=== PATIENT | female | born 1980 | race Caucasian/White ===

== ENCOUNTER 2020-09-16 17:18 | Outpatient (CLI) | payer BC, SELFPAY ==
--- NOTE | ~2020-09-16 | MM_ITS ---
EXAMINATION: MM scrn ciara implant BI w bianca HISTORY: Screening mammogram TECHNIQUE: Craniocaudal and mediolateral oblique 3-D tomosynthesis images with implant displacement a nd synthetic 2-D images were generated. Craniocaudal and mediolateral oblique views of the breasts wi thout implant displacement were obtained using full field digital mammography. CAD analysis was submi tted and interpreted. COMPARISON: 05/14/2015 BREAST PARENCHYMAL COMPOSITION: The breasts are heterogeneously dense, which may obscure small masses . FINDINGS: There is no evidence of suspicious mass, calcification, or architectural distortion to sugg est malignancy in either breast. There has been no suspicious interval change. IMPRESSION: 1. No mammographic evidence of malignancy. 2. Recommend routine screening mammography beginning at age 40. BI-RADS Category 1: Negative Reviewed, dictated and finalized at location A.
== END 2020-09-16 17:19 | disposition home or self-care (01) ==
LOC: ANHIMG 17:22
PROVIDERS: Visit Provider Surgery Plastic and Reconstructive Surgery
DX: Z12.31 Encounter for screening mammogram for malignant neoplasm of breast (principal)
CPT/HCPCS: 77063; 77067

== ENCOUNTER 2020-09-30 00:06 | Outpatient (CLI) | payer SELFPAY ==
[2020-09-30 19:48] LABS: SARS-CoV-2 RNA PCR Negative
== END 2020-09-30 00:07 | disposition home or self-care (01) ==
LOC: ANHCOVIDDT 00:06
PROVIDERS: Visit Provider Surgery Plastic and Reconstructive Surgery
DX: Z01.812 Encounter for preprocedural laboratory examination (principal); Z20.828 Contact with and (suspected) exposure to other viral communicable diseases
CPT/HCPCS: 87635; C9803; U0003

== ENCOUNTER 2020-10-03 00:03 | Day surgery (SDC) | payer OTHER, SELFPAY ==
[2020-09-18 14:54] VITALS: BMI 25.1
[2020-10-03] VITALS (8 sets, daily range): BP systolic 114–134; BP diastolic 55–87; PULSE 82–124; RESP 14–22; TEMP 36.2–36.9; O2SAT 100
[2020-10-03] MEDS: LACTATED RINGERS 1,000 ML 30 ML IV CONT ×2 (08:43→10:35)
--- NOTE | 2020-10-03 08:45 | WPDANESEPPF ---
Anes - Initial Pre Proc Eval Procedure: Operation Date: 10/03/20 10:00 Proposed Procedures p Bilateral Breast Implant Exchange - Jb Summers MD Date/Time: 10/03/20 08:45 Surgeon: Jb Summers MD Pre Op Diagnosis: Hx Breast Augmentation Patient Data Age: 39 Gender: F Height: 5 ft 9 in Weight: 77.11 kg Allergies Allergy/AdvReac Type Severity Reaction Status Date / Time tetracycline Allergy Unknown FELT LIKE Verified 09/17/20 16:27 COULDNT SWALLOW HYDROCODONE BIT Allergy Unknown BLACKED Uncoded 09/17/20 16:27 OUT Home Medications Medication Instructions Recorded Confirmed Type citalopram 40 mg tablet 40 mg PO DAILY 08/11/20 09/18/20 History linaclotide 290 mcg capsule 290 mcg PO DAILY 08/11/20 09/18/20 History phentermine 37.5 mg capsule 37.5 mg PO DAILY 08/11/20 09/18/20 History carisoprodol 350 mg tablet 350 mg PO TID PRN #21 tablet 09/19/20 09/19/20 Rx tramadol 50 mg tablet 50 mg PO Q6H PRN #15 tablet 09/28/20 Rx alprazolam PO PRN 09/29/20 History Patient hx anesthesia problems: post op nausea/vomiting Family hx anesthesia problems: none PMFSH Past Medical History Medical History Anxiety Surgical History Surgical History History of breast augmentation 2007 Family History Family History Other Cancer Social History Social History Smoking status: Never smoker Alcohol intake: current Substance use: never Living arrangements: with family Gender identity (if verbalized by the patient): Female Spiritual care concerns: No Anes - Eval Final PreProcedure Day of Procedure 10/03/20 08:45 Patient weight: normal Heart: regular rate and rhythm Lungs: clear to auscultation Airway: Mallampati scale class II Neurological: alert and oriented Last oral intake: >/= 8 hours ASA classification: II Emergent: no Anesthetic plan: proceed Anesthesia type and monitoring: general LMA and standard monitoring Other findings: TIVA Informed Consent: The patient's anesthetic plan and its attendant risks and benefits were discussed with the patient/family/POA. Questions were solicited and answers provided to the satisfaction of the patient/family/POA.
--- NOTE | 2020-10-03 09:03 | WPDHPUPDATE1 ---
History and Physical Update Update Date/Time: 10/03/20 09:03 History and Physical has been reviewed, including an updated exam of the patient. There are NO changes in the patient's condition. Risks, benefits, and alternatives have been discussed and questions answered. Patient agrees to proceed with procedure.
--- NOTE | 2020-10-03 09:23 | PM.PROC ---
Procedure Note - Detailed Date of procedure: 10/03/20 Pre-op diagnosis: Hx Breast Augmentation Post-op diagnosis: same Procedure performed: Bilateral breast implant exchange Description of procedure: Preoperative leave the risks, benefits, alternatives were discussed in extensive detail. I want her to be very realistic about the risks involved as well as expectations. Made sure answered all of her questions are satisfaction. Consent obtained. She was taken to the operating room placed supine on the operating room table. Anesthesia was provided by anesthesiology and prepped and draped in a standard sterile fashion. Surgical time-out was taken. 1% lidocaine and 0.25% Marcaine with epinephrine was used anesthetize as a field block. We discussed the options of incision and she has elected to with the IMF incision even though she had had a previous periareolar. Fifteen blade used to make an incision along IMF. Dissection was continued down until the implant was identified this was removed. I irrigated with more than 3 L of saline solution on TUR tubing and verified strict hemostasis. Adjusted the capsule as necessary with capsulotomy. Minimal is necessary. Verified strict hemostasis. Irrigated with triple antibiotic Betadine containing solution. Wash my gloves. On the back table removed all air from the implant was introduced into the pocket. I filled to the fill volume as below. Removed the fill valve and verified the valve seated. Closed using 2-0 Vicryl followed by 3-0 Monocryl in a running subcuticular 4-0 Monocryl and tissue glue. She tolerated well. Anesthesia: GLMA Surgeon: Jb Summers MD Estimated blood loss (mL): 10 Drains: No Packing: No Pathology: none sent Complications: No immediate complications Condition: stable Disposition: PACU Findings: Bilateral Natrelle Saline implants 510cc filled to 530cc. Right: REF# [id number] [id number] Left: REF# [id number]
[2020-10-03] MEDS: ceFAZolin 2 GM/D5W 50 ML 2 GM/50 ML BAG IVPB (09:27)
[2020-10-03] MEDS: LIDO 1%/EPINEPHRINE 1:100,000 20 ML VIAL 30 ML INFILTRATE (10:16)
[2020-10-03] MEDS: HYDROmorphone HCL INJ (*CRX) 1 MG/ML SYR 0.5 MG IV PUSH (10:59)
[2020-10-03] MEDS: oxyCODONE HCL (*CRX) 5 MG TAB IR PO (11:55)
--- NOTE | 2020-10-03 12:26 | SUR.PHASEII ---
PT AWAKE AND ALERT. STATES PAIN MILD AND TOLERABLE. STATES SHE IS RELAXED AND READY TO GO HOME. MEETS DISCHARGE CRITERIA
== END 2020-10-03 12:28 | disposition home or self-care (01) ==
PROVIDERS: PCP Family Medicine; Visit Provider Surgery Plastic and Reconstructive Surgery
PROC: (CPT 19342; principal; 2020-10-03 10:00)
DX: Z45.812 Encounter for adjustment or removal of left breast implant (principal); Z45.811 Encounter for adjustment or removal of right breast implant; F41.9 Anxiety disorder, unspecified
CPT/HCPCS: 19340; 19328; A9270; J0690; J1100; J1170; J1580; J2250; J2405; J2704; J3010; J7030; J7120

== ENCOUNTER 2021-02-14 02:53 | Emergency (ER) | payer BC, SELFPAY ==
[2021-02-14 02:57] VITALS: BP 136/96; PULSE 122; RESP 16; TEMP 36.3; O2SAT 100
[2021-02-14] MEDS: SODIUM CHLORIDE 0.9% IV 1,000 ML 999 ML IV CONT (03:15)
[2021-02-14] MEDS: LORazepam INJ (*CRX) 2 MG/ML VIAL 1 MG IV PUSH (03:20)
[2021-02-14 04:14] VITALS: BP 128/95; PULSE 88; RESP 16; O2SAT 100
--- NOTE | 2021-02-14 04:18 | ED.GENADULT ---
HPI - General Adult General Chief complaint: Altered Mental Status Stated complaint: took THC gummy/ AMS Time Seen by Provider: 02/14/21 03:04 History of Present Illness HPI narrative: Patient is a 40-year-old female who presents to the emergency department with chief complaint of feeling weird and anxious. Patient reports she has history of anxiety and tonight tried to take a new CBD gummy that she is never taken before patient was previously exposed to CBD but today took a delta 8 THC that the CBD store sold to her. Patient states that she feels very strange and very anxious. Patient denies chest pain denies shortness of breath Related Data Home Medications Medication Instructions Recorded Confirmed citalopram 40 mg tablet 40 mg PO DAILY 08/11/20 09/18/20 linaclotide 290 mcg capsule 290 mcg PO DAILY 08/11/20 09/18/20 alprazolam PO PRN 09/29/20 Allergies Allergy/AdvReac Type Severity Reaction Status Date / Time tetracycline Allergy Unknown FELT LIKE Verified 12/10/20 08:52 COULDNT SWALLOW HYDROCODONE BIT Allergy Unknown BLACKED Uncoded 11/28/20 09:13 OUT Review of Systems Review of Systems: Narrative: A 10 system review of systems was completed on the patient and is negative except for what is stated in the HPI. Nursing and ancillary documentation was reviewed. PMFSH Past Medical History Medical History Anxiety Surgical History Surgical History History of breast augmentation 2007 Family History Family History Other Cancer Social History Social History Smoking status: Never smoker Alcohol intake: current Substance use: never Gender identity (if verbalized by the patient): Female Spiritual care concerns: No Exam Narrative: Exam Narrative: GENERAL: Well-appearing, well-nourished, and in no acute distress. HEAD: Normocephalic, atraumatic. EYES: PERRLA and EOMI. ENT: Nares clear, no rhinorrhea or epistaxis. Mucous membranes moist. NECK: Supple. CHEST: Clear to auscultation. No respiratory distress. HEART: Regular rate and rhythm. No murmur heard. Normal peripheral pulses. ABDOMEN: Soft, nontender, nondistended, normal active bowel sounds. EXTREMITIES: Normal range of motion. No edema. SKIN: Warm, dry, no rash. NEURO: No focal deficits. Alert and oriented x3. PSYCH: Normal mood and affect. Course Vital Signs Vital signs: Vital Signs Temperature 36.3 C L 02/14/21 02:57 Pulse Rate 122 H 02/14/21 02:57 Respiratory Rate 16 02/14/21 02:57 Blood Pressure 136/96 H 02/14/21 02:57 Pulse Oximetry 100 02/14/21 02:57 Temperature 36.3 C L 02/14/21 02:57 Pulse Rate 88 02/14/21 04:14 Respiratory Rate 16 02/14/21 04:14 Blood Pressure 128/95 H 02/14/21 04:14 Pulse Oximetry 100 02/14/21 04:14 Medical Decision Making Vital Signs Vital Signs: Vital Signs Temperature 36.3 C L 02/14/21 02:57 Pulse Rate 122 H 02/14/21 02:57 Respiratory Rate 16 02/14/21 02:57 Blood Pressure 136/96 H 02/14/21 02:57 Pulse Oximetry 100 02/14/21 02:57 Temperature 36.3 C L 02/14/21 02:57 Pulse Rate 88 02/14/21 04:14 Respiratory Rate 16 02/14/21 04:14 Blood Pressure 128/95 H 02/14/21 04:14 Pulse Oximetry 100 02/14/21 04:14 Discharge Plan Discharge Clinical Impression: Medication side effect Patient Disposition: Home, Self-Care Condition: Stable Instructions: Antibiotic Form Prescriptions: No Action Linzess 290 mcg capsule 290 mcg PO DAILY RF: 0 citalopram 40 mg tablet 40 mg PO DAILY RF: 0 alprazolam PO PRN (Reason: Anxiety) RF: 0 Follow-up/Referrals: Lucero,Leighann Zapata MD [Primary Care Provider] - Time of Disposition: 04:46
[2021-02-14 05:00] VITALS: BP 121/77; PULSE 87; RESP 20; O2SAT 98
== END 2021-02-14 05:04 | disposition home or self-care (01) ==
LOC: ANHED 04:20
PROVIDERS: Emergency Provider Emergency Medicine; PCP Family Medicine
DX: F41.9 Anxiety disorder, unspecified (principal); F12.90 Cannabis use, unspecified, uncomplicated
CPT/HCPCS: 96361; 96374; 99284; J2060; J7030

== ENCOUNTER → 2023-08-24 07:49 | Outpatient (CLI) | payer BC, SELFPAY ==
--- NOTE | ~2023-08-24 | MMUS_ITS ---
EXAMINATION: MM diag ciara implant BI w bianca, US breast LT limited HISTORY: Abnormal swelling near the left breast implant TECHNIQUE: Craniocaudal, mediolateral, and mediolateral oblique 3-D tomosynthesis images with implant displacement of the breasts were performed and synthetic 2-D images were generated. Craniocaudal, m ediolateral oblique, and mediolateral views of the breasts without implant displacement were obtained using full field digital mammography. CAD analysis was submitted and interpreted. High resolution li [employer]d left breast ultrasound was performed. COMPARISON: 09/16/2020 BREAST PARENCHYMAL COMPOSITION: The breasts are heterogeneously dense, which may obscure small masses . FINDINGS: MAMMOGRAPHIC FINDINGS: No suspicious mass, calcification, or architectural distortion are identified in either breast to sug gest malignancy. There has been no suspicious interval change. No suspicious mammographic correlate i s identified for the reported abnormality questioned on the left breast implant. There appears to be a fold in the implant in the area of concern. ULTRASOUND: There is no evidence of focal abnormal solid or cystic lesion in the vicinity of the reported abnorma lity of concern in the left breast implant. IMPRESSION: 1. No specific mammographic or sonographic correlate is identified for the reported abnormality of co ncern in the left breast implant Further evaluation at this time should be based on clinical assessme nt. Continued follow-up physical examination is recommended. Consider breast MRI for implant evaluati on. 2. Recommend routine screening mammography in one year. BI-RADS Category 1: Negative Reviewed, dictated and finalized at location A. IMPRESSION: 1. No specific mammographic or sonographic correlate is identified for the repo rted abnormality of concern in the left breast implant Further evaluation at is time should be based on clinical assessment. Continued follow-up physical ex amination is recommended. Consider breast MRI for implant evaluation. 2. Recommend routine screening mammography in one year. BI-RADS Category 1: Negative
== END ==
PROVIDERS: PCP Surgery Plastic and Reconstructive Surgery; Visit Provider Nurse Practitioner
DX: N64.59 Other signs and symptoms in breast (principal); N63.21 Unspecified lump in the left breast, upper outer quadrant
CPT/HCPCS: 76642; 77062; 77066; G0279

== ENCOUNTER 2024-04-26 15:22 | Outpatient (CLI) | payer BC, SELFPAY | END 2024-04-26 15:23 | disposition home or self-care (01) | PROVIDERS: PCP Nurse Practitioner Family; Visit Provider Nurse Practitioner Family | DX: M25.562 Pain in left knee (principal) | CPT/HCPCS: 73564 ==

== ENCOUNTER 2024-12-14 08:58 | Outpatient (CLI) | payer OTHER, SELFPAY ==
--- OUTSIDE RECORDS SUMMARY | 2024-12-14 09:14 | XMS_ITS | Data Portability ---
Author Organization [facility] [employer], Main Office Address [address] [place] [address] Assessment No assessment recorded. Plan of Treatment Reminders Order Date Submit Date Provider Last Modified By Organization Details Last Modified Time Details Appointments None recorded. Lab None recorded. Referral gastroenter ologist referral 2022 023 [email or web address] 3 [facility], [address], [address], [address], 3 07:44:02 physical therapist referral - *Please call pt to schedule* 2023 [email or web address] [place] [address] [facility], [address], [place], [address], 4 08:54:14 gastroenter ologist referral - Please call patient to schedule an appointment . Thank you 2023 024 [email or web address] [facility], [address], [address], [place], [address], 4 15:54:04 Procedures cerumen removal using irrigation (PROC) 2022 023 Not available 3 12:50:49 Surgeries None recorded. Imaging MAMMO, diagnostic, bilateral - *Please call pt to schedule* 2022 023 [email or web address] 256 [facility] (Imaging), [address], [place], [address], 3 08:41:34 XR, knee [email or web address] [place] [address] ([facility]), [facility]0 [facility] [address], [place], [address], 4 09:58:18 Medication Orders Wegovy 1.7 mg/0.75 mL subcutaneou s pen injector [address]/Pharmacy [address]2510, [address] [place], [address], 5 15:26:36 Debrox 6.5 % ear drops [address]/Pharmacy [address]2510, [address] [place], [address], 5 15:26:57 triamcinolo ne acetonide 0.1 % topical cream 2022 [address] [employer] [place] [address]/Pharmacy #2510, [address] [place], [address], 5 15:26:32 Wegovy 1.7 mg/0.75 mL subcutaneou s pen injector 2024 025 [facility]/Pharmacy #2510, [address] [place], [address], 5 16:07:36 Patient TargetsNo targets recorded. Patient InstructionsNo instructions recorded. Reason for Referral Technical Illustrator Referral for Irritable bowel syndrome Referring Physician: Family Giuseppe López, Encounter Date: 07/15/2023 Physical Therapist Referral for Pain of left knee joint L knee pain *Please call pt to schedule* Referring Physician: Family Giuseppe López, Encounter Date: 03/29/2024 Technical Illustrator Referral for Irritable bowel syndrome Please call patient to schedule an appointment. Thank you Referring Physician: Beau Phoenix, Family Medicine, Encounter Date: 06/27/2024 Results Created Date Observation Date Name Description Value Unit Range Abnormal Flag Note LastModifiedBy Organization Detail LastModifiedTime 04/27/20 24 04/26/2024 XR, knee No observ ation record ed. [facility] [address], [place], [address], 08/27/2024 09:50:48 Result Notes None recorded. Problems Name Problem SNOMED Code Status Onset Date Resolution Date Notes Provider Name and Address Organization Details Recorded Time Irritable bowel syndrome characteri zed by constipati on 435247916 Active 2019 Not Available [facility] 3 21:54:52 Anxiety 14819600 Active 2019 Not Available [facility] 3 21:54:52 Irritable bowel syndrome 97064164 Active 2022 ROBBY López [address], [place], [address] , [employer] 3 16:16:03 Pain of left breast 8452141076 Active 2022 ROBBY López [address] [facility], [place], [address] , [employer] 3 09:46:03 Otitis externa of bilateral ears 6926342468207 109 Active 2022 Leighann Barker MD [address], [place], [address] , [employer] 3 13:43:11 Eczema 92565020 Active 2022 ROBBY López [address], [place], [address] , [employer] 3 15:59:46 Impacted cerumen in right ear 3278079518749 103 Active 2022 ORBBY López [address], [place], [address] , [employer] 3 16:06:21 Impacted cerumen in left ear 1565257483782 101 Active 2022 ABDIFATAH López-C [address], [address], [place], [address] , [employer] [facility] [employer] 3 16:06:30 Pain of left knee joint 4198482713694 07 Active 2023 ABDIFATAH López-C [address], [address], [place], [address] , [employer] 4 16:01:38 Aphthous ulcer of mouth 484332480 Active 2023 ABDIFATAH Snatacruz-C [address], [address], [place], [address] , [employer] 4 12:22:46 Problem Notes None recorded. Procedures Surgical History Date Name Laterality Status Provider Name and Address Organization Details Recorded Time 3 Ear Irrigation completed ABDIFATAH López-Osiel [address], [address], [place], [address], [employer] 09/22/2023 16:31:53 Imaging Results Imaging Date Name Status LastModified by Organiz ation Details LastModified Time 04/26/2024 XR, knee completed llalor [facility] [address] [facility] [address], [address], 08/27/2024 09:50:48 Procedure Notes None recorded. Medical Equipment None Reported. Allergies Allergen ID Allergen Name Allergen Category Reaction Reaction Severity Criticality Documentation Date Start Date Code Code System Note Provider Name and Address Organization Details Recorded Time 60434 acetamino phen / hydrocodo ne medicatio n dizziness Not available Not available 01/19/2023 54023 2 RxNorm Not Available [facility] 3 21:56:46 16403 tetracycl ine medicatio n Not available Not available Not available 01/19/2023 93618 RxNorm diffi culty swall owing Not Available [employer] 3 21:56:46 Medications Name Sig Start Date Stop Date Status Note LastModified by Organization Details LastModified Time Prescriptio n - Prior Authorizati on Request active Not Available Not Available N ot Available carisoprodo l 350 mg tablet TAKE 1 TABLET 3 TIMES DAILY NEEDED FOR MUSCLE PAIN active Not Available Not Available No t Available promethazin e-DM 6.25 mg-15 mg/5 mL oral syrup TAKE 5 MILLILITE R (ORAL) EVERY 4-6 HOURS NEEDED- CONGESTIO N FOR 5 DAYS 12/21 completed Not Available Not Available Not Available citalopram 40 mg tablet TAKE 1 TABLET BY MOUTH EVERY DAY active Not Available Not Available No t Available azithromyci n 250 mg tablet TAKE 2 TABLETS BY MOUTH TODAY, THEN TAKE 1 TABLET DAILY FOR 4 DAYS 12/21 completed Not Available Not Available Not Available ibuprofen 800 mg tablet 1 po tid 12/21 completed Not Available Not Available Not Available citalopram 10 mg tablet 05/19 completed Not Available Not Available Not Available valacyclovi r 1 gram tablet TAKE 1 TABLET BY MOUTH EVERY 12 hours 11/28 completed Not Available Not Available Not Available prednisone 20 mg tablet TAKE 2 TABLETS BY MOUTH EVERY DAY FOR 5 DAYS 11/28 completed Not Available Not Available Not Available phentermine 37.5 mg tablet TAKE 1 TABLET BY MOUTH EVERY DAY 11/28 completed Not Available Not Available Not Available valacyclovi r 500 mg tablet 10/19 completed Not Available Not Available Not Available tramadol 50 mg tablet TAKE 1 TABLET BY MOUTH EVERY 6 HOURS NEEDED FOR PAIN active Not Available Not Available No t Available triamcinolo ne acetonide 0.1 % topical cream APPLY A THIN LAYER TO THE AFFECTED AREA(S) BY TOPICAL ROUTE 2 TIMES PER DAY 11/28 completed Not Available Not Available Not Available oxycodone-a cetaminophe n 5 mg-325 mg tablet TAKE 1 TABLET BY MOUTH EVERY 6 HOURS NEEDED FOR PAIN active Not Available Not Available No t Available alprazolam 0.5 mg tablet TAKE 1 TABLET EVERY DAY BY ORAL ROUTE NEEDED. active Not Available Not Available No t Available amoxicillin 875 mg tablet TAKE 1 TABLET BY MOUTH TWICE A DAY FOR 10 DAYS 12/21 completed Not Available Not Available Not Available alprazolam 0.25 mg tablet 05/19 completed Not Available Not Available Not Available citalopram 20 mg tablet 05/19 completed Not Available Not Available Not Available Ear Wax Removal Kit 6.5 % drops INSTILL 5 DROPS INTO AFFECTED EAR TWICE A DAY 11/28 completed Not Available Not Available Not Available trazodone 100 mg tablet TAKE 1 TABLET BY MOUTH EVERYDAY AT BEDTIME active Not Available Not Available No t Available benzonatate 100 mg capsule 05/19 completed Not Available Not Available Not Available cephalexin 500 mg capsule TAKE 1 CAPSULE BY MOUTH THREE TIMES A DAY FOR 10 DAYS 11/28 completed Not Available Not Available Not Available oseltamivir 75 mg capsule 05/19 completed Not Available Not Available Not Available docusate sodium 100 mg capsule TAKE 1 CAPSULE BY MOUTH TWICE A DAY active Not Available Not Available No t Available gabapentin 300 mg capsule Take 300mg PO qd x 1, then 300mg PO bid x 1, then 300mg PO tid for 5 days active Not Available Not Available No t Available lidocaine HCl 2 % mucosal solution active Not Available Not Available Not Available gabapentin 100 mg capsule 05/19 completed Not Available Not Available Not Available methylpredn isolone 4 mg tablets in a dose pack TAKE 6 TABLETS ON DAY 1 DIRECTED ON PACKAGE AND DECREASE BY 1 TAB EACH DAY FOR A TOTAL OF 6 DAYS 12/21 completed Not Available Not Available Not Available clobetasol 0.05 % scalp solution APPLY TO THE AFFECTED SCALP AREA BY TOPICAL ROUTE 2 TIMES PER DAY IN THE MORNING AND EVENING 11/28 completed Not Available Not Available Not Available amoxicillin 875 mg-potassiu m clavulanate 125 mg tablet TAKE 1 TABLET BY MOUTH TWICE A DAY FOR 10 DAYS 12/21 completed Not Available Not Available Not Available ciprofloxac in 0.3 %-dexametha sone 0.1 % ear drops,suspe nsion INSTILL 4 DROPS INTO AFFECTED EAR(S) TWICE A DAY FOR 7 DAYS 11/28 completed Not Available Not Available Not Available diclofenac 1 % topical gel 05/19 completed Not Available Not Available Not Available Rebeca 30 mg tablet 12/21 completed Not Available Not Available Not Available Linzess 145 mcg capsule TAKE 1 CAPSULE BY MOUTH EVERY DAY active Not Available Not Available No t Available Linzess 290 mcg capsule TAKE 1 CAPSULE BY MOUTH EVERY DAY active Not Available Not Available No t Available Flucelvax Quad (PF) 60 mcg (15 mcg x 4)/0.5 mL IM syringe 11/28 completed Not Available Not Available Not Available Wegovy 2.4 mg/0.75 mL subcutaneou s pen injector 0.75 ml sc qweek 11/28 completed Not Available Not Available Not Available Wegovy 1.7 mg/0.75 mL subcutaneou s pen injector INJECT 1.7 MG SUBCUTANE OUSLY ONE TIME PER WEEK active Not Available Not Available No t Available Wegovy 1 mg/0.5 mL subcutaneou s pen injector INJECT 1 MG SUBCUTANE OUSLY EVERY WEEK 10/12 completed Not Available Not Available Not Available Wegovy 0.25 mg/0.5 mL subcutaneou s pen injector INJECT 0.5ML SUBCUTANE OUSLY ONCE WEEKLY 11/28 completed Not Available Not Available Not Available Wegovy 0.5 mg/0.5 mL subcutaneou s pen injector INJECT 0.5 MG SUBCUTANE OUSLY EVERY WEEK 10/19 completed Not Available Not Available Not Available Vitals Date Recorded Body height Body mass index (BMI) Body weight Body temperature Heart rate Oxygen saturation Oxygen saturation in Arterial blood by Pulse oximetry Systolic blood pressure Diastolic blood pressure Provider Name and Address Organization Details Last Updated DateTime 3 175.26 cm 26.4 kg/m2 83524.0 3 g 98.3 [degF] 86 /min 98 % 98 % 122 mm[Hg] 70 mm[Hg] Fabiana Carrillo LPN [place] [facility] [employer] [facility] 3 09:31:33 Date Recorded Body height Body mass index (BMI) Body weight Body temperature Heart rate Oxygen saturation Oxygen saturation in Arterial blood by Pulse oximetry Systolic blood pressure Diastolic blood pressure Provider Name and Address Organization Details Last Updated DateTime 3 175.26 cm 24.5 kg/m2 87726.3 3 g 98.2 [degF] 83 /min 97 % 97 % 108 mm[Hg] 74 mm[Hg] Lizbeth Jang RN [facility] [employer] [facility] 3 15:57:01 Date Recorded Body height Body mass index (BMI) Body weight Body temperature Heart rate Oxygen saturation Oxygen saturation in Arterial blood by Pulse oximetry Systolic blood pressure Diastolic blood pressure Provider Name and Address Organization Details Last Updated DateTime 4 175.26 cm 23 kg/m2 60604.4 1 g 98.3 [degF] 85 /min 100 % 100 % 130 mm[Hg] 82 mm[Hg] Usha Milan RN [facility] [employer] [facility] 4 15:58:32 Date Recorded Body height Body mass index (BMI) Body weight Body temperature Heart rate Oxygen saturation Oxygen saturation in Arterial blood by Pulse oximetry Systolic blood pressure Diastolic blood pressure Provider Name and Address Organization Details Last Updated DateTime 4 175.26 cm 23.5 kg/m2 11735.1 9 g 98.3 [degF] 82 /min 99 % 99 % 124 mm[Hg] 82 mm[Hg] Usha Milan RN [facility] [employer] [facility] 4 15:53:44 Date Recorded Body height Body mass index (BMI) Body weight Body temperature Heart rate Oxygen saturation Oxygen saturation in Arterial blood by Pulse oximetry Systolic blood pressure Diastolic blood pressure Provider Name and Address Organization Details Last Updated DateTime 5 175.26 cm 23.5 kg/m2 33346.1 9 g 97.2 [degF] 112 /min 93 % 93 % 110 mm[Hg] 64 mm[Hg] Barrington Nino RN [facility] [employer] [facility] 5 15:26:00 Social History Question Answer Notes LastModified by Organizat ion Details LastModified Time Tobacco Smoking Status Never Smoker Not Available [employer] 01/19/2023 21:53:37 What Is Your Level Of Alcohol Consumption? Occasional [id number] Information not available 01/19/2023 What Is Your Level Of Caffeine Consumption? Moderate [id number] Information not available 01/19/2023 In The 14 Days Before Symptom Onset, Have You Had Close Contact With A Laboratory-confir med COVID-19 While That Case Was Ill? No [id number] Information not available 01/19/2023 In The 14 Days Before Symptom Onset, Have You Had Close Contact With A Person Who Is Under Investigation For COVID-19 While That Person Was Ill? No [id number] Information not available 01/19/2023 What Type Of Diet Are You Following? REGULAR [id number] Information not available 01/19/2023 Do You Or Have You Ever Used E-cigarettes Or Vape? Never Used Electronic Cigarettes [id number].[id number] Information not available 01/19/2023 Do You Or Have You Ever Used Smokeless Tobacco? Never Used Smokeless Tobacco [id number].[id number] Information not available 01/19/2023 Do You Use Any Illicit Or Recreational Drugs? No MIGRATION.[id number] 1367 Information not available 01/19/2023 Has Tobacco Cessation Counseling Been Provided? No MIGRATION.[id number] Information not available 01/19/2023 Do You Have Any Dietary Restrictions? No MIGRATION.[id number] 8914 Information not available 01/19/2023 Do You Or Have You Ever Used Any Other Forms Of Tobacco Or Nicotine? No MIGRATION.[id number] Information not available 01/19/2023 Sex: Unknown Functional Status Question Answer Note LastModified by [employer] ion Details LastModified Time What is your exercise level? Occasional [id number] Information not available 01/19/2023 Mental Status None recorded. Family History Nothing Reported. Medical History Condition Response BLINDNESS N RHEUMATIC FEVER N BLADDER PROBLEMS N KIDNEY STONES N MRSA N OTHER # 1 N POLIO N LUNG DISEASE/DISORDER N RADIATION / CHEMOTHERAPY N COPD N Other # 2 N BLOOD DISEASES N SURGERY N EAR OR HEARING PROBLEMS N MUMPS N DEPRESSION (INCLUDING POST ) N FEMALE PROBLEMS / INFECTIONS N BOWEL PROBLEMS N STROKE/TIA N THYROID DISEASE N ULCERS N BENIGN PROSTATIC HYPERPLASIA N MEASLES N CERVICALGIA N TB SKIN TEST N MYOCARDIAL INFARCTION N PARAPELGIA N OBESITY N GERD/NAUSEA N ANEURYSM N URINARY/BLADDER/KIDNEY PROBLEMS N CORONARY ARTERY DISEASE (CAD) N MENIERE'S DISEASE N ADDICTION CONCERNS N ENDOMETRIOSIS N USE OF BLOOD THINNERS N SKIN PROBLEMS N EMPHYSEMA N GASTROINTESTINAL DISORDER N MUSCLE,JOINT OR BONE PROBLEMS N GASTROINTESTINAL BLEEDING N BLOOD CLOTS N ASTHMA N CATARACTS N ERECTILE DYSFUNCTION N GI PROBLEMS N CHF N Low Testosterone N NEUROPATHY N INFERTILITY N AIDS/HIV N FRACTURES N CHEMOTHERAPY / RADIATION N VISION/EYE PROBLEMS N LIVER DISEASE N MALE HYPOGONADISM N HYPERTENSION N TOURETTE'S N ANXIETY DISORDER N BLOOD TRANSFUSION N ANEMIA/BLOOD DISORDER N CHRONIC EAR INFECTIONS N BRONCHITIS N TUBERCULOSIS N GLAUCOMA N FOOT PROBLEM N DIVERTICULITIS N CHICKENPOX N SLEEP APNEA N ALLERGIES/HAYFEVER N INFECTIOUS DISEASE N HEART ARRHYTHMIA N PROSTATE N INSOMNIA N HIGH CHOLESTEROL / HYPERLIPIDEMIA N HYPERTHYROIDISM N EYE PROBLEMS N EATING DISORDER N EDEMA N CHRONIC PAIN SYNDROME N CAROTID BLOCKAGE N CONSTIPATION N BACK / NECK PROBLEMS N HAVE YOU BEEN HOSPITALIZED OR SEEN IN [facility] IN THE PAST YEAR ? N ATHEROSCLEROSIS N BREAST PROBLEMS N DIALYSIS N ECZEMA N FIBROMYALGIA N OSTEOPOROSIS N ARTHRITIS N NO SIGNIFICANT PAST MEDICAL HISTORY N APPENDICITIS N DIABETES, TYPE N BAD TEETH N HEARTBURN / REFLUX N ADD/ADHD N AUTISM SPECTRUM DISORDER (ASD) N HEPATITIS / LIVER DISEASE N PULMONARY DISEASE N GOUT N SLEEP DISORDER N ALZHEIMER'S DISEASE N PAIN N HERPES N DEMENTIA N HEADACHES/MIGRAINES N SEIZURES/EPILEPSY N VASCULAR DISEASE N PACEMAKER N DIZZINESS N HEART DISEASE/HEART PROBLEMS N KIDNEY DISEASE N DEVELOPMENTAL OR BEHAVIORAL DISORDERS N MULTIPLE SCLEROSIS N SCARLET FEVER N MENTAL DISORDER/ILLNESS N CARDIAC ARRHYTHMIA N CANCER: SPECIFY N PNEUMONIA N ATRIAL FIBRILLATION N Gall Stones N PULMONARY EMBOLISM N AUTOIMMUNE DISEASE N Gynecological History Statement/Question Response Dislike of Light during Menstrual Headac he N Menses Monthly Y Current Control Method None Flow Light Date of LMP 02/24/2021 Breast Problems no Obstetrics History GPAL:G 0 P 0 0 0 0 Past Encounters Encounter ID Performer Location Encounter Start Date Encounter Closed Date Diagnosis/Indication Diagnosis SNOMED-CT Code Diagnosis ICD10 Code Diagnosis Note [id number] [facility] [address] [place] [address] 03/27/2021 00:00:00 03/27/2021 08:42:02 [id number] [facility] [address] [facility] [place] [address] 06/19/2021 00:00:00 06/19/2021 12:51:47 [id number] [facility] [address] [place] [address] 04/28/2022 00:00:00 04/28/2022 16:04:29 [id number] [facility] [address] [place] [address] 06/16/2022 00:00:00 06/16/2022 15:52:19 [id number] [facility] Primary [facility] [address] [place] [address] 12/21/2022 00:00:00 12/21/2022 08:24:20 [id number] [facility] Jonathan hernandese [address] [facility] [address] [place] [address] 01/17/2023 00:00:00 01/17/2023 10:04:11 [id number] OLAF Barboza [facility] Primary Care Jonathan hernandese [address] [facility] [address] [place] [address] 04/08/2023 08:19:45 04/08/2023 08:37:04 Dietary management surveillance 755364134 Z71.3 Goal weight 165lbs. She is down 7lbs since last visit.Will increase dose to 1.7mg weekly. Continue diet/exerc ise. 01/17/23: Has been on wegovy for 1 month. She has not improvemen t in her weight loss.She states she tries to stay under 1200 calories, drinks her greens because she does not like vegetables . She is still drinking coffee in the morning that has sugar, needs to cut back on carbs. She is good about drinking at least a gallon of water per day. She is getting in 4-5 days of exercise per week.Advis ed to pay attention to calories because if she is still gaining, she is getting those calories from somewhere. Will increase wegovy 0.5mg weekly. [id number] ROBBY López [facility] Primary Care Jonathan hernandese [address] [facility] [address] [place] [address] 06/21/2023 15:49:51 06/21/2023 17:07:13 Irritable bowel syndrome 87893886 K58.9 Stable with use of medication .[facility] paperwork completed [id number] ROBBY López S_[facility] Primary Care Jonathan lle [address] [facility] [address] [place] [address] 07/15/2023 09:12:57 07/15/2023 11:30:33 Pain of left breast 4053882420 N64.4 Noted pain to breast in the last couple weeks/wilbur Gtz of an issue when she tries to work outHx of breast of breast implants Irritable bowel syndrome 02388640 K58.9 Stable-pt wants referral due to previous [facility] 197116069 Z71.3 Stable when using wegovyHas been out for the last couple weeks [id number] ROBBY López [facility] Primary Care [address] [place] [address] 09/22/2023 15:41:04 09/22/2023 16:31:49 Eczema 67645575 L30.9 -noted lizbeth ear lobes, area developed 2 weeks ago after spending time in a hot tub-had hx of this in the past-bough t OTC eczema cream but she hasn't used it yet-dry skin noted to the bilateral ear lobes on exam-will trial triamcinol one Impacted c erumen in left ear 6121499503 047897 H61.22 -impaction noted to left ear, pt notes congestion /decreased hearing-ce rumen not able to be removed from left ear-debrox gtts given-f/u in 2 weeks for another irrigation [id number] ROBBY López [facility] Primary Care [address] [place] [address] 03/29/2024 15:49:53 03/29/2024 16:29:31 Pain of left knee joint 2229876384 19741 M25.562 -new issue, started 2 weeks ago-noted pop to left knee while recently doing weighted squat (recently started doing weightlift ing-has continued her weightlift ing classes, wears knee brace-pain rated at 4/10 currently, not taking anything currently- ROM and strength intact with pain-able to go up and down stairs-xra y ordered [id number] ROBBY López [facility] Primary Care [address] [place] [address] 06/27/2024 15:46:08 06/27/2024 16:47:21 Irritable bowel syndrome 31496443 K58.9 Stable-pt wants referral due to previous Dr. candida saenz dfmla forms need to be completed [id number] Tracie Calderón, PMHNP [facility] [address], [place] [address] 08/29/2024 17:05:09 08/29/2024 17:50:23 [id number] ABDIFATAH Santacruz-C S_G Primary Care [facility] [address] [facility] [address] [place] [address] 11/28/2024 15:20:16 11/28/2024 15:39:04 Renewal of prescription 760090736 Z76.0 Anxiety 20376551 F41.9 Doing okay at this time, holidays were rough-miss ed three consecutiv e days of work due to anxiety. Health Concerns Section Related Observation LastModified by Organization Detai ls LastModified Time None Recorded Concern Status LastModified by Organization Details LastModified Time None Recorded Advance Directives Directive None Recorded Payers Encounter Date Sequence Insurance Name Policy Number Policy Zambrano Covered Member ID Zambrano Member ID Guarantor Name 07/15/2023 1 [employer] [id number] Josephine French [id number] Josephine French 09/22/2023 1 [employer] [id number] Josephineronni French [id number] Josephineronni Frenhc 03/29/2024 1 [employer] [id number] Josephineronni French [id number] Josephineronni French 06/27/2024 1 [employer] [id number] Josephineronni French [id number] Josephineronni French 11/28/2024 1 [employer] [id number] Josephineronni French [id number] Josephine French Notes Date Note Type Note Provider Name and Address Organization Details Recorded Time 07/15/2023 text/html Pt is here for m ed f/u r/t wegovy. Has been off of this medicaton for the last couple weeks due to issues with insurance. States preauthorization form needs to be sent in with toady's weight. Requests referral for GI for her IBS-C, previous retired. No current issues Would like diagnostic mammogram sent over to Brian r/t pain to breast. ROBBY López [address], [place], [address], [employer] 07/15/2023 10:02:39 09/22/2023 text/html Pt is here to f/ u on itching/flaking ears and ear congestion ROBBY López [address], [place], [address], [employer] [employer] 09/22/2023 16:39:34 03/29/2024 text/html pt is here for l eft knee pain ROBBY López [address], [address], [place], [address], [employer] 03/29/2024 16:28:50 06/27/2024 text/html pt is here for f /u fmla Beau ROBBY Phoenix [address], [address], [place], [address], [employer] 06/27/2024 16:07:42 11/28/2024 text/html Patient is a 44 year old female that presents to the office to discuss FMLA paperwork. Patient has had FMLA paperwork for several years due to severe anxiety and associated symptoms of palpitations, severe abdominal pain, nausea and vomiting. Patient is requesting that the episodic duration be extended to 2-3 days as her symptoms have been worse since losing her mom. Patient is requesting refill on Wegovy for weight management. Patient has been doing great with diet and exercise but is scheduled to have surgery on 01/08/25 to have capsule for breast implant repaired and is worried that she will gain weight since she is unable to work out for 6 weeks following surgery. ROBBY Santacruz [address] [facility] [address], [place], [address], [place] [facility] 11/28/2024 16:08:09 OBGyn Episode No OBEpisode recorded.
[2024-12-14 09:31] LABS: Albumin Level 4.4 g/dL (3.5-5.1); Anion Gap 10 mmol/L (4-12); Blood Urea Nitrogen 17 mg/dL (7-17); Calcium 9.4 mg/dL (8.4-10.2); Carbon Dioxide 26 mmol/L (22-30); Chloride 102 mmol/L (98-107); Estimated Glomerular Filt Rate > 60; Glucose 90 mg/dL (65-110); Potassium 4.2 mmol/L (3.4-5.0); Sodium 138 mmol/L (137-145)
[2024-12-14 09:38] LABS: Prealbumin 23.8 mg/dL (17.6-36.0)
[2024-12-14 09:56] LABS: Iron 130 ug/dL (37-170)
[2024-12-14 10:51] LABS: Hemoglobin A1C 5.4 % (<5.7)
[2024-12-21 13:23] LABS: Vitamin B1 21 nmol/L (8-30)
== END 2024-12-14 08:59 | disposition home or self-care (01) ==
PROVIDERS: PCP Nurse Practitioner Family; Visit Provider Surgery Plastic and Reconstructive Surgery
DX: R63.4 Abnormal weight loss (principal); Z68.23 Body mass index [BMI] 23.0-23.9, adult
CPT/HCPCS: 36415; 80048; 82040; 83036; 83540; 84134; 84425

== ENCOUNTER 2025-01-08 00:31 | Day surgery (SDC) | payer OTHER, SELFPAY ==
[2025-01-01 10:53] VITALS: BMI 23.6
--- NOTE | 2025-01-01 10:59 | PC.NURSE ---
Report to the Outpatient Waiting Room, entrance under the green pavilion located off [facility], at time _0830_ on date _01-11-0502_. Planned Procedure Time: _1030_.? Time changes happen often and if your time is changed the preop area will call you the afternoon before. - You and your visitor will be asked to self-screen and do not enter if you have any COVID symptoms. Please call surgeon if you need to reschedule. - A mask is optional within the hospital at this time. Patients may have clear liquids (water, carbonated beverages, clear teas, apple juice) until 3 hours prior to surgery with a maximum of 20 ounces. - No food from midnight until time of surgery and no smoking, or chewing tobacco (or any form of nicotine). No chewing gum, candy or mints. Take only the following medications with a SIP of water on the morning of surgery: ___Alprazolam if needed. DO NOT STOP ANY OF YOUR OTHER PRESCRIPTION MEDICATIONS PRIOR TO SURGERY EXCEPT THE FOLLOWING Hold all vitamins and supplements for 3 days per anesthesiologist. Medications to discontinue per physician ____None Date to take last dose Please no make-up, nail maltese, hairspray, perfume, deodorant, or body powder the day of surgery.? No jewelry (including any body piercings) or valuables the day of surgery, leave them at home.? Please take a shower or bath the night before, or the morning of, surgery with an antibacterial soap.? Wear comfortable, loose fitting clothing.? - Jewelry must be removed prior to entering the operating room.? Rings and piercings that are not removed may be cut off. - The hospital will not accept responsibility for valuables.? - Please leave all valuables, including medications, at home the day of surgery. If you are going home after surgery, a licensed electric train driver must drive you home.? - NO public transportation without another adult if you receive anesthesia. - We recommend that an adult stay with you for 24 hours following discharge. - We also recommend that you do not drive, make important decision, drink alcoholic beverages, or take any drugs that were not prescribed by your health care provider for at least 24 hours after your discharge time. Follow any additional instructions given to you from your surgeon. Telephone instructions given to __Amanda__and asked if any additional questions and then verbalized understanding. Patient advised to call surgeon office or pre surgery nurse liaison [phone] if any additional questions.
[2025-01-08] VITALS (8 sets, daily range): BP systolic 99–132; BP diastolic 67–83; PULSE 75–102; RESP 12–20; TEMP 36.3–36.5; O2SAT 97–100; BMI 25.4
--- OUTSIDE RECORDS SUMMARY | 2025-01-08 00:33 | XMS_ITS | Data Portability ---
Author Organization [place] - [facility] [employer], Main Office Address [address] [place] [address] Assessment No assessment recorded. Plan of Treatment Reminders Order Date Submit Date Provider Last Modified By Organization Details Last Modified Time Details Appointments Follow Up 15 2024 04:15P RUDDY CatHNP Not available Not available Not available Lab None recorded. Referral gastroent erologist referral - Please call patient to schedule an appointme nt. Thank you 2023 024 [email or web address] [facility], [address], [address], [address], 07/26/2024 15:54:04 physical therapist referral - *Please call pt to schedule* [address] [place] [address] [facility], [address] [facility] [address], [place], [address], 04/30/2024 08:54:14 gastroent erologist referral 2022 023 [email or web address] [facility], [address], [address] [place] [address], [address], 09/09/2023 07:44:02 Procedures cerumen removal using irrigatio n (PROC) 2022 023 Not available 09/27/2023 12:50:49 Surgeries None recorded. Imaging XR, knee [email or web address] [place] [address] (Imaging), [address], [place], [address], 04/17/2024 09:58:18 MAMMO, diagnosti c, bilateral - *Please call pt to schedule* [email or web address] [place] [address] (Imaging), [address] [facility] [address], [place], [address], 08/15/2023 08:41:34 Medication Orders Wegovy 1.7 mg/0.75 mL subcutane ous pen injector 2024 025 GAMALIEL [facility], [address] [place], [address], 11/28/2024 16:07:36 Debrox 6.5 % ear drops 2022 023 [email or web address] 77 [facility], [address] [place], [address], 11/28/2024 15:26:57 triamcino lone acetonide 0.1 % topical cream 2022 023 [email or web address] 77 [facility], [address] [place], [address], 11/28/2024 15:26:32 Wegovy 1.7 mg/0.75 mL subcutane ous pen injector 2022 023 [email or web address] 77 [facility], [address] [place], [address], 11/28/2024 15:26:36 Patient TargetsNo targets recorded. Patient InstructionsNo instructions recorded. Reason for Referral [employer] Referral for Irritable bowel syndrome Referring Physician: [facility], Encounter Date: 07/15/2023 Physical Therapist Referral for Pain of left knee joint L knee pain *Please call pt to schedule* Referring Physician: [facility], Encounter Date: 03/29/2024 Bi Application Developer Referral for Irritable bowel syndrome Please call patient to schedule an appointment. Thank you Referring Physician: Beau Phoenix, Family Medicine, Encounter Date: 06/27/2024 Results Created Date Observation Date Name Description Value Unit Range Abnormal Flag Note LastModifiedBy Organization Detail LastModifiedTime 04/27/20 24 04/26/2024 XR, knee No observ ation record ed. [facility] [address] [facility] [address], [place], [address], 08/27/2024 09:50:48 Result Notes None recorded. Problems Name Problem SNOMED Code Status Onset Date Resolution Date Notes Provider Name and Address Organization Details Recorded Time Irritable bowel syndrome characteri zed by constipati on 572816067 Active 2019 Not Available [facility] 3 21:54:52 Anxiety 69606928 Active 2019 Not Available [facility] 3 21:54:52 Irritable bowel syndrome 27457546 Active 2022 ROBBY López [address], [address], [place], [address] , [employer] 3 16:16:03 Pain of left breast 0000460546 Active 2022 GROVER LópezC [address], [address], [place], [address] , [employer] 3 09:46:03 Otitis externa of bilateral ears 0794982463569 109 Active 2022 Leighann Barker MD [address], [address], [place], [address] , [employer] 3 13:43:11 Eczema 24313122 Active 2022 ABDIFATAH López-C [address], [place], [address] , [employer] 3 15:59:46 Impacted cerumen in right ear 1249441134191 103 Active 2022 Beau Morleyrakesh SCROLL MACHINE OPERATOR-C [address], [address], [place], [address] , [employer] [facility] [employer] [facility] 3 16:06:21 Impacted cerumen in left ear 5710762463725 101 Active 2022 Beau Morleyd SCROLL MACHINE OPERATOR-C [address], [address], [place], [address] , [employer] [facility] [employer] [facility] 3 16:06:30 Pain of left knee joint 7050771429055 07 Active 2023 Beau Morleyrakesh SCROLL MACHINE OPERATOR-C [address], [address], [place], [address] , [employer] [facility] [employer] 4 16:01:38 Aphthous ulcer of mouth 085867528 Active 2023 SOMMER SantacruzP-C [address], [address], [place], [address] , [employer] [facility] [address] [facility] 4 12:22:46 Problem Notes None recorded. Procedures Surgical History Date Name Laterality Status Provider Name and Address Organization Details Recorded Time 3 Ear Irrigation completed Beau ABDIFATAH Phoenix-C [address], [address], [place], [address], [employer] [facility] [employer] 09/22/2023 16:31:53 Imaging Results Imaging Date Name Status LastModified by Organiz ation Details LastModified Time 04/26/2024 XR, knee completed llalor [facility] [address] [facility] [address], [place], [address], 08/27/2024 09:50:48 Procedure Notes None recorded. Medical Equipment None Reported. Allergies Allergen ID Allergen Name Allergen Category Reaction Reaction Severity Criticality Documentation Date Start Date Code Code System Note Provider Name and Address Organization Details Recorded Time 94282 acetamino phen / hydrocodo ne medicatio n dizziness Not available Not available 01/19/2023 00671 2 RxNorm Not Available [employer] 3 21:56:46 59216 tetracycl ine medicatio n Not available Not available Not available 01/19/2023 10949 RxNorm diffi timoteo trimble owing Not Available [facility] 3 21:56:46 Medications Name Sig Start Date [...] completed Not Available Not Available Not Available ondansetron HCl 4 mg tablet active Not Available Not Available Not Available prednisone 20 mg tablet TAKE 2 TABLETS BY MOUTH EVERY DAY FOR 5 DAYS 11/28 completed Not Available Not Available Not Available phentermine 37.5 mg tablet TAKE 1 TABLET BY MOUTH EVERY DAY 11/28 completed Not Available Not Available Not Available valacyclovi r 500 mg tablet TAKE 1 TABLET BY MOUTH TWICE A DAY FOR 7 DAYS active Not Available Not Available No t Available tramadol 50 mg tablet TAKE 1 [...] Updated DateTime 3 175.26 cm 26.4 kg/m2 73347.0 3 g 98.3 [degF] 86 /min 98 % 98 % 122 mm[Hg] 70 mm[Hg] Fabiana Carrillo LPN [place] [facility] [address] [facility] 3 09:31:33 Date Recorded Body height Body mass index (BMI) Body weight Body temperature Heart rate Oxygen saturation Oxygen saturation in Arterial blood by Pulse oximetry Systolic blood pressure Diastolic blood pressure Provider Name and Address Organization Details Last Updated DateTime 3 175.26 cm 24.5 kg/m2 09122.3 3 g 98.2 [degF] 83 /min 97 % 97 % 108 mm[Hg] 74 mm[Hg] Lizbeth Jang RN [facility] [address] [facility] 3 15:57:01 Date Recorded Body height Body mass index (BMI) Body weight Body temperature Heart rate Oxygen saturation Oxygen saturation in Arterial blood by Pulse oximetry Systolic blood pressure Diastolic blood pressure Provider Name and Address Organization Details Last Updated DateTime 4 175.26 cm 23 kg/m2 01540.4 1 g 98.3 [degF] 85 /min 100 % 100 % 130 mm[Hg] 82 mm[Hg] Usha Milan RN [facility] [address] [facility] 4 15:58:32 Date Recorded Body height Body mass index (BMI) Body weight Body temperature Heart rate Oxygen saturation Oxygen saturation in Arterial blood by Pulse oximetry Systolic blood pressure Diastolic blood pressure Provider Name and Address Organization Details Last Updated DateTime 4 175.26 cm 23.5 kg/m2 80934.1 9 g 98.3 [degF] 82 /min 99 % 99 % 124 mm[Hg] 82 mm[Hg] Usha Milan RN [facility] [address] [facility] 4 15:53:44 Date Recorded Body height Body mass index (BMI) Body weight Body temperature Heart rate Oxygen saturation Oxygen saturation in Arterial blood by Pulse oximetry Systolic blood pressure Diastolic blood pressure Provider Name and Address Organization Details Last Updated DateTime 5 175.26 cm 23.5 kg/m2 65487.1 9 g 97.2 [degF] 112 /min 93 % 93 % 110 mm[Hg] 64 mm[Hg] Barrington Nino RN [facility] [address] [facility] 5 15:26:00 Social History Question Answer Notes LastModified by Organizat ion Details LastModified Time Tobacco Smoking Status Never Smoker Not Available [employer] 01/19/2023 21:53:37 What Is Your Level Of Alcohol Consumption? Occasional [id number].[id number] Information not available 01/19/2023 What Is Your Level Of Caffeine Consumption? Moderate MIGRATION.[id number] 7399 Information not available 01/19/2023 In The 14 Days Before Symptom Onset, Have You Had Close Contact With A Laboratory-confir med COVID-19 While That Case Was Ill? No MIGRATION.[id number] Information not available 01/19/2023 In The 14 Days Before Symptom Onset, Have You Had Close Contact With A Person Who Is Under Investigation For COVID-19 While That Person Was Ill? No MIGRATION.[id number] Information not available 01/19/2023 What Type Of Diet Are You Following? REGULAR MIGRATION.690764 8025 Information not available 01/19/2023 Do You Or Have You Ever Used E-cigarettes Or Vape? Never Used Electronic Cigarettes MIGRATION.307675 6341 Information not available 01/19/2023 Do You Or Have You Ever Used Smokeless Tobacco? Never Used Smokeless Tobacco MIGRATION.327422 8456 Information not available 01/19/2023 Do You Use Any Illicit Or Recreational Drugs? No MIGRATION.813532 4611 Information not available 01/19/2023 Has Tobacco Cessation Counseling Been Provided? No MIGRATION.130199 6487 Information not available 01/19/2023 Do You Have Any Dietary Restrictions? No MIGRATION.715929 2964 Information not available 01/19/2023 Do You Or Have You Ever Used Any Other Forms Of Tobacco Or Nicotine? No MIGRATION.545559 3406 Information not available 01/19/2023 Sex: Unknown Functional Status Question Answer Note LastModified by Organizat ion Details LastModified Time What is your exercise level? Occasional [id number] Information not available 01/19/2023 Mental Status None recorded. Family History Nothing Reported. Medical History Condition Response BLINDNESS N RHEUMATIC FEVER N KIDNEY STONES N BLADDER PROBLEMS N MRSA N OTHER # 1 N POLIO N LUNG DISEASE/DISORDER N COPD N RADIATION / CHEMOTHERAPY N Other # 2 N BLOOD DISEASES N SURGERY N EAR OR HEARING PROBLEMS N MUMPS N BOWEL PROBLEMS N FEMALE PROBLEMS / INFECTIONS N DEPRESSION (INCLUDING POST ) N STROKE/TIA N THYROID DISEASE N ULCERS N BENIGN PROSTATIC HYPERPLASIA N MEASLES N CERVICALGIA N TB SKIN TEST N MYOCARDIAL INFARCTION N OBESITY N PARAPELGIA N GERD/NAUSEA N ANEURYSM N URINARY/BLADDER/KIDNEY PROBLEMS [...] HAVE YOU BEEN HOSPITALIZED OR SEEN IN [facility] IN THE PAST YEAR ? N ATHEROSCLEROSIS [...] SNOMED-CT Code Diagnosis ICD10 Code Diagnosis Note [id number] [facility] [address] [place] [address] 03/27/2021 00:00:00 03/27/2021 08:42:02 [id number] [facility] [address] [place] [address] 06/19/2021 00:00:00 06/19/2021 12:51:47 [id number] [facility] [address] [place] [address] 04/28/2022 00:00:00 04/28/2022 16:04:29 [id number] [facility] [address] [facility] [address] [place] [address] 06/16/2022 00:00:00 06/16/2022 15:52:19 [id number] [facility] [address] [facility] [address] [place] [address] 12/21/2022 00:00:00 12/21/2022 08:24:20 [id number] [facility] [address] [facility] [address] [place] [address] 01/17/2023 00:00:00 01/17/2023 10:04:11 [id number] OLAF Barboza [facility] [address] [facility] [address] [place] [address] 04/08/2023 08:19:45 04/08/2023 08:37:04 Dietary management surveillance 677397732 Z71.3 Goal weight 165lbs. She is down [...] from somewhere. Will increase wegovy 0.5mg weekly. [id number] ROBBY López [facility] [address] [facility] [address] [place] [address] 06/21/2023 15:49:51 06/21/2023 17:07:13 Irritable bowel syndrome 04529078 K58.9 Stable with use of medication .[facility] paperwork completed [id number] ROBBY López [facility] Primary Care [facility] [address] [facility] [address] [place] [address] 07/15/2023 09:12:57 07/15/2023 11:30:33 Pain of left breast 4338330601 N64.4 Noted pain to breast in the last couple weeks/wilbur Gtz of an issue when she tries to work outHx of breast of breast implants Irritable bowel syndrome 28379221 K58.9 Stable-pt wants referral due to previous Dr. garza Dietary yannick yost surveillance 538018257 Z71.3 Stable when using wegovyHas been out for the last couple weeks [id number] ROBBY López [facility] Primary Care [facility] [address] [facility] [address] [place] [address] 09/22/2023 15:41:04 09/22/2023 16:31:49 Eczema 90599610 L30.9 -noted lizbeth ear lobes, area developed 2 weeks ago after spending time in a hot tub-had hx of this in the past-bough t OTC eczema cream but she hasn't used it yet-dry skin noted to the bilateral ear lobes on exam-will trial triamcinol one Impacted c erumen in left ear 4761450695 454729 H61.22 -impaction noted to left ear, pt notes congestion /decreased hearing-ce rumen not able to be removed from left ear-debrox gtts given-f/u in 2 weeks for another irrigation [id number] ROBBY López [facility] Primary Care [facility] [address] [facility] [address] [place] [address] 03/29/2024 15:49:53 03/29/2024 16:29:31 Pain of left knee joint 3928750103 93389 M25.562 -new issue, started 2 weeks ago-noted pop to left knee while recently doing weighted squat (recently started doing weightlift ing-has continued her weightlift ing classes, wears knee brace-pain rated at 4/10 currently, not taking anything currently- ROM and strength intact with pain-able to go up and down stairs-xra y ordered [id number] ABDIFATAH López-C [facility] Primary Care [facility] [address] [facility] [address] [place] [address] 06/27/2024 15:46:08 06/27/2024 16:47:21 Irritable bowel syndrome 18943842 K58.9 Stable-pt wants referral due to previous Dr. candida estrada regenerate dfmla forms need to be completed [id number] Tracie Calderón [facility] [address] [address] 08/29/2024 17:05:09 08/29/2024 17:50:23 [id number] ABDIFATAH Santacruz-C [facility] Primary Care [facility] [address] [facility] [address] [place] [address] 11/28/2024 15:20:16 11/28/2024 15:39:04 Renewal of prescription 949689080 Z76.0 Anxiety 28113767 F41.9 Doing okay at this time, holidays were rough-miss ed three consecutiv e days of work due to anxiety. [id number] Tracie Calderón [facility] [address] [place] [address] 12/20/2024 16:59:05 12/20/2024 17:43:10 Health Concerns Section Related Observation LastModified by Organization Detai ls LastModified Time None Recorded Concern Status LastModified by Organization Details LastModified Time None Recorded Advance Directives Directive None Recorded Payers Encounter Date Sequence Insurance Name Policy Number Policy Zambrano Covered Member ID Zambrano Member ID Guarantor Name 07/15/2023 1 [place] [id number] Josephine French [id number] Josephine French 09/22/2023 1 [place] [id number] Josephine French [id number] Josephine French 03/29/2024 1 [place] [id number] Josephine French [id number] Josephine French 06/27/2024 1 [place] [id number] Josephine French [id number] Josephine French 11/28/2024 1 [place] [id number] Josephine French [id number] Josephine French Notes Date Note Type Note Provider Name and Address Organization Details Recorded Time 07/15/2023 text/html Pt is here for m ed f/u r/t selma. Has been off of this medicaton for the last couple weeks due to issues with insurance. States preauthorization form needs to be sent in with toady's weight. Requests referral for GI for her IBS-C, previous retired. No current issues Would like diagnostic mammogram sent over to Brian r/t ramirez to breast. ROBBY López [address], [place], [address], [facility] 07/15/2023 10:02:39 09/22/2023 text/html Pt is here to f/ u on itching/flaking ears and ear congestion ROBBY López [address], [place], [address], [facility] 09/22/2023 16:39:34 03/29/2024 text/html pt is here for l eft knee pain ROBBY López [address], [place], [address], [facility] 03/29/2024 16:28:50 06/27/2024 text/html pt is here for f /u fmla ABDIFATAH López-Osiel [address], [place], [address], [facility] 06/27/2024 16:07:42 11/28/2024 text/html Patient is a [...] work out for 6 weeks following surgery. Jessica Nicolas, SCROLL MACHINE OPERATOR-C [address] [facility] [facility] [address], [place], [address], [place] [facility] 11/28/2024 16:08:09 OBGyn Episode No OBEpisode recorded.
--- OUTSIDE RECORDS SUMMARY | 2025-01-08 00:33 | XMS_ITS | Continuity of Care Document ---
[facility] Organization [facility] Address [address] [place] [address] Phone Care Team Providers Care Oil Scout Name Role Phone Jh Mitchell MD Unavailable Unavailable Allergies, Adverse Reactions, Alerts Substance Reaction Status Criticality tetracycline Active No Information HYDROCODONE BITARTRATE Active No In formation acetaminophen Active No Information Medications Medication Instructions Dosage Effective Dates (start - stop) Status Comments Linzess 145 mcg capsule take 1 capsule by oral route every day on an empty stomach at least 30 minutes before 1st meal of the day swallowing whole. - Active Celexa 10 mg tablet take 1 tablet by oral route every day 10 MG - Active Linzess 145 mcg capsule take 1 capsule by oral route every day on an empty stomach at least 30 minutes before 1st meal of the day swallowing whole. Do not break, chew and/or open. - No Longer Active Advance Directives Directive Yes / No Effective Date File Name No Information Encounters Encounter Description Practice Location Reason(s) For Visit Diagnoses Date Provider Providers Copied on Encounter [facility], [address], [place], [place], [id number], tel:[phone] [facility] No Information 6 Paula Peñaloza. [address] [place] [address], [id number] , [place]. tel: [phone] [facility], [address], [place], [place], [id number], tel:[phone] [facility] Irritable bowel syndrome without diarrhea 6 Lidia Guerrero. [address] [place], [place], [id number] , . tel: [phone] Referring Provider: Cesar Cunningham, [address] [place] [address], [id number] . tel:[phone] [facility], [address], [place], [place], [id number], tel:[phone] [facility] No Information 6 Lidia Guerrero. [address] [place] [address], [id number] , [place]. [phone] [facility], [address], [place], [place], [id number], [place] tel:[phone] [facility] Periumbilical abdominal pain 6 Lidia Guerrero. [address] [place] [address], [id number] , . tel: [phone] Referring Provider: Eduardo Durán, [facility] [address], [place], [address]. tel:[phone] Family History Family Member Type Diagnosis Age At Onset No Information Payers Payer name Insurance type Covered libertarian ID Authordalederrell dianecorbin(s) [employer] INACTIVE OUT OF STATE [id number] Social History Type Description Quantity Date Captured Comments Sex Female Smoking Status No Information Chief Complaint And Reason For Visit No Information Reason For Referral Reason For Referral No Information History Of Present Illness Encounter Date Complaint History Of Prese nt Illness No Information Functional Status Date Functional Assessmen t No Information Instructions Date Instruction Additional Infor mation No Information Assessments Type Assessment Date No Information Patient Care Teams Name Effective Dates (start - stop) Status Members No Information
[2025-01-08] MEDS: LACTATED RINGERS 1,000 ML 30 ML IV CONT (06:35)
[2025-01-08 06:45] LABS: BEDSIDEPREGUCG Negative (Negative)
--- NOTE | 2025-01-08 06:55 | WPDANESEPPF ---
Anes - Initial Pre Proc Eval Procedure: Operation Date: 01/08/25 07:30 Proposed Procedures p Bilateral Breast Implant Exchange with Capsulectomy - Jb uSmmers MD Date/Time: 01/08/25 06:55 Surgeon: Jb Summers MD Pre Op Diagnosis: hx of breast augmentation Patient Data Age: 44 Gender: F Height: 1.75 m Weight: 78.3 kg Last Vital Signs Temp 36.5 C 01/08/25 06:09 Pulse 75 01/08/25 06:09 Resp 16 01/08/25 06:09 BP 99/67 L 01/08/25 06:09 Pulse Ox 100 01/08/25 06:09 O2 Del Method Room Air 01/08/25 06:09 Allergies Allergy/AdvReac Type Severity Reaction Status Date / Time tetracycline Allergy Unknown FELT LIKE Verified 01/08/25 06:18 COULDNT SWALLOW hydrocodone AdvReac Intermediate Other Verified 01/08/25 06:18 Home Medications ?Medication ?Instructions ?Recorded ?Confirmed ?Type citalopram 40 mg tablet 40 mg PO DAILY 08/11/20 01/08/25 History linaclotide 290 mcg capsule 290 mcg PO DAILY 08/11/20 01/08/25 History (Linzess) alprazolam [Xanax] 0.5 m PO DAILY PRN Anxiety 09/29/20 01/01/25 History trazodone 100 mg tablet 100 mg PO QHS PRN Insomnia 08/05/23 01/01/25 History valacyclovir 1 gram tablet 500 mg PO BID PRN Cold Sores 08/18/23 01/01/25 History (Valtrex) Laboratory Tests 01/08/25 06:42 POC Urine HCG, Qual Negative (Negative) Patient hx anesthesia problems: post op nausea/vomiting Family hx anesthesia problems: none Results Review: All pre-operative results and documents have been reviewed as part of the pre-operative evaluation. [facility] Past Medical History Medical History (Updated 01/08/25 @ 06:55 by Jose Mckee DO) Depression PONV (postoperative nausea and vomiting) Syncope Hematochezia Irritable bowel syndrome with constipation Anxiety Surgical History Surgical History History of breast augmentation 2006 Family History Family History Other Cancer Social History Social History Smoking status: Never smoker Alcohol intake: current Alcohol use details: Socially Substance use: never Substance use type: does not use Living arrangements: other Additional living arrangements comments: with sp Gender identity (if verbalized by the patient): Female Spiritual care concerns: No Anes - Eval Final PreProcedure Day of Procedure 01/08/25 06:55 Patient weight: overweight Heart: regular rate and rhythm Lungs: clear to auscultation Airway: Mallampati scale class 1 Neurological: alert and oriented Last oral intake: >/= 8 hours ASA classification: II Emergent: no Anesthetic plan: proceed Anesthesia type and monitoring: general LMA and standard monitoring Results Review: All pre-operative results and documents have been reviewed as part of the pre-operative evaluation. Informed Consent: The patient's anesthetic plan and its attendant risks and benefits were discussed with the patient/family/POA. Questions were solicited and answers provided to the satisfaction of the patient/family/POA.
[2025-01-08] MEDS: SCOPOLAMINE 1 MG PATCH 1 PATCH TRANSDERM (07:07)
--- NOTE | 2025-01-08 07:08 | WPDHPUPDATE1 ---
History and Physical Update Update Date/Time: 01/08/25 07:08 History and Physical has been reviewed, including an updated exam of the patient. There are NO changes in the patient's condition. Risks, benefits, and alternatives have been discussed and questions answered. Patient agrees to proceed with procedure.
--- NOTE | 2025-01-08 07:08 | W.PM.PROC2 ---
Procedure Note - Detailed Date of Procedure 01/08/25 Pre-op Diagnosis hx of breast augmentation Post-op Diagnosis Same Procedure Performed Bilateral breast implant exchange Surgeon Jb Summers MD Anesthesia General Findings Previous implants: Bilateral Natrelle Saline implants 510cc (filled to 530cc) Right: REF# [id number] SN [id number] Left: REF# [id number] SN [id number] New implants: Natrelle Inspira Cohesive Implants 650cc Right: REF# [id number] SN [id number] Left: REF# [id number] No worrisome capsular features Description of Procedure Preoperatively the risks, benefits, alternatives were discussed in extensive detail. I wanted to be very realistic about the risks involved as well as expectations. I was clear about how we could actually make her worse. Answered all questions to satisfaction. Voiced a clear understanding. Consent obtained. She was taken the operating room placed supine on the operating room table. Anesthesia provided by anesthesiology and prepped and draped in a standard sterile fashion. Surgical time-out was taken. 1% lidocaine and 0.25% Marcaine with epinephrine was used to provide a field block. Tegaderm nipple clinton were placed. Fifteen blade used to excise the previous IMF scars. Dissection was continued down until the capsules were identified and entered. Implants removed bilateral. Capsulotomy completed as needed for size change.Verified strict hemostasis. Irrigated with Phase One and allowed to soak for a prolonged period of time. I then irrigated with Betadine containing solution. Using a no-touch technique and a Stephenson funnel the implant was introduced into the pocket. This was closed with 2-0 PDS followed by 3-0 Monocryl and a running subcuticular 4-0 Monocryl followed by tissue glue. Dressings were placed. She was woken taken to the PACU without difficulty. All instrument sponge counts were correct at the end of the case. Estimated Blood Loss 10 Drains No Packing No Pathology None sent Complications No immediate complications Condition Stable Disposition PACU
[2025-01-08] MEDS: ceFAZolin 2 GM/D5W 50 ML 2 GM/50 ML BAG IVPB (07:30)
[2025-01-08] MEDS: TRANEXAMIC ACID 1,000MG/ISO100 1,000 MG/100 ML BAG 200 MG IVPB (07:38)
[2025-01-08] MEDS: NACL 0.9% IRRIG POUR BOTTLE 900 ML, GENTAMICIN SULFATE INJ 160 MG, ceFAZolin 2 GM, POVI... IRRIGATION (08:10)
[2025-01-08] MEDS: LIDO 1%/EPINEPHRINE 1:100,000 20 ML VIAL 40 ML INFILTRATE (08:11)
[2025-01-08] MEDS: BUPivacaine HCL 0.5% 10 ML AMP 40 ML INFILTRATE (08:12)
== END 2025-01-08 10:05 | disposition home or self-care (01) ==
PROVIDERS: PCP Nurse Practitioner Family; Visit Provider Surgery Plastic and Reconstructive Surgery
PROC: (CPT 19342; principal; 2025-01-08 07:30)
DX: Z41.1 Encounter for cosmetic surgery (principal); K58.1 Irritable bowel syndrome with constipation; F32.A Depression, unspecified; F41.9 Anxiety disorder, unspecified; Z98.890 Other specified postprocedural states; Z80.9 Family history of malignant neoplasm, unspecified
CPT/HCPCS: 19370; 19325; A9270; J0690; J1100; J1171; J1200; J1580; J2004; J2250; J2405; J2704; J3010; J7030; J7120